=== PATIENT | female | born 1955 | race Caucasian/White ===

== ENCOUNTER 2021-07-20 21:04 | Emergency (ER) | payer MEDICARE, MEDICAID ==
[~2021-07-20] VITALS: Ht 152.4 cm; Wt 78.0 kg
[~2021-07-20 21:04] MED LIST changes: -ALBUMIN HUMAN 12.5G/250ML (5%) IV ONE; -ALBUTEROL 90MCG/PUFF 17GM INHALER INH ONE; -BACITRACIN 15GM TUBE TOP ONE; -BUPIVACAINE HCL/PF 0.5% (5MG/ML) 10ML ONE; -DEXAMETHASONE 4MG/ML 1ML VIAL ONE; -FENTANYL CITRATE/PF 50MCG/ML 2ML VIAL IV PRN; -FENTANYL CITRATE/PF 50MCG/ML 2ML VIAL ONE; -HEPARIN 1000 UNITS/ML 10ML ONE; -HEPARIN SODIUM 1,000 UNIT/1ML VIAL IV NR; -HEPARIN SODIUM 1,000 UNIT/1ML VIAL IV ONE; -LIDOCAINE HCL 1% 20ML VIAL (Pyxis) INJ ONE; -NIFEDIPINE 10MG CAPSULE ONE; -PHENYLEPHRINE HCL 10 MG/ML 1ML (IV VIAL) IV ONE; -POLYMYXIN B SULFATE 500000 UNITS/VIAL ONE; -PROPOFOL 200MG/20ML VIAL IV ONE; -SODIUM CHLORIDE 0.9% 10ML VIAL ONE; -SODIUM CHLORIDE 0.9% 500 ML IV ONE; -THROMBIN (BOVINE) 5000 UNITS/VIAL TOP ONE
[2021-07-21 01:46] VITALS: BP 120/75
== END 2021-07-21 01:35 | disposition home or self-care (01) ==
LOC: ER 21:04
DX: R58 Hemorrhage, not elsewhere classified (principal); E11.9 Type 2 diabetes mellitus without complications; I10 Essential (primary) hypertension; Z98.890 Other specified postprocedural states; Z79.899 Other long term (current) drug therapy
CPT/HCPCS: 99281

== ENCOUNTER → 2021-07-20 | Day surgery (SDC) | payer MEDICARE, MEDICAID ==
[~2021-07-20] VITALS: Ht 162.6 cm; Wt 81.0 kg
[~2021-07-20] MED LIST: ALBUMIN HUMAN 12.5G/250ML (5%) IV ONE; ALBUTEROL 90MCG/PUFF 17GM INHALER INH ONE; AMLO10TA80 MT; ASPI-1497 MT; BACITRACIN 15GM TUBE TOP ONE; BUME1TAB8 MT; BUPIVACAINE HCL/PF 0.5% (5MG/ML) 10ML ONE; CLOP75TA33 MT; DEXAMETHASONE 4MG/ML 1ML VIAL ONE; FENTANYL CITRATE/PF 50MCG/ML 2ML VIAL IV PRN; FENTANYL CITRATE/PF 50MCG/ML 2ML VIAL ONE; FERR325T6 MT; FURO40TA5 MT; GABA-529 MT; HEPARIN 1000 UNITS/ML 10ML ONE; HEPARIN SODIUM 1,000 UNIT/1ML VIAL IV NR; HEPARIN SODIUM 1,000 UNIT/1ML VIAL IV ONE; INSU3INS8 SUBCUT; ISOS30TA12 MT; LEVO75TA7 MT; LIDOCAINE HCL 1% 20ML VIAL (Pyxis) INJ ONE; METO25TA6 MT; NIFEDIPINE 10MG CAPSULE ONE; PANT40TA51 MT; PHENYLEPHRINE HCL 10 MG/ML 1ML (IV VIAL) IV ONE; POLYMYXIN B SULFATE 500000 UNITS/VIAL ONE; PROPOFOL 200MG/20ML VIAL IV ONE; SERT25TA74 MT; SIMV-46 MT; SODIUM CHLORIDE 0.9% 10ML VIAL ONE; SODIUM CHLORIDE 0.9% 500 ML IV ONE; THROMBIN (BOVINE) 5000 UNITS/VIAL TOP ONE; TOPUD MT
[2021-07-20 09:03] LABS: BASOPHILS % 0.8 % (0.0-2.0); EOSINOPHILS % 2.4 % (0.0-5.0); HEMATOCRIT. 35.8 % (36.0-48.0); HEMOGLOBIN. 11.3 g/dL (12.0-16.0); LYMPHOCYTES % 12.6 % (20.0-50.0); MEAN CORPUSCULAR HEMOGLOBIN 32.1 pg (28.0-32.0); MEAN CORPUSCULAR VOLUME 101.9 fL (81.0-99.0); MEAN PLATELET VOLUME 8.7 fl (7.4-10.4); MONOCYTES % 6.3 % (2.0-8.0); NEUTROPHILS % 77.9 % (40.0-76.0); PLATELET 219 x1000/uL (130-400); RED BLOOD CELL COUNT 3.51 mill/uL (4.2-5.4); RED CELL DISTRIBUTION WIDTH 16.8 % (11.6-14.6)
[2021-07-20 09:14] LABS: INR 1.1; PARTIAL THROMBOPLASTIN TIME 23.6 sec (23.4-31.0); PROTHROMBIN TIME 11.7 sec (9.6-11.0)
[2021-07-20] MEDS: HYDROMORPHONE HCL/PF 2MG/ML CPJ IV PRN ×2 (12:19→12:45)
[2021-07-20 12:45] VITALS: BP 123/49
== END | disposition home or self-care (01) ==
LOC: OR 07:33
PROVIDERS: ATTEND Surgery Vascular Surgery
DX: I77.0 Arteriovenous fistula, acquired (principal); I12.0 Hypertensive chronic kidney disease with stage 5 chronic kidney disease or end stage renal disease; N18.6 End stage renal disease; E10.22 Type 1 diabetes mellitus with diabetic chronic kidney disease; I25.10 Atherosclerotic heart disease of native coronary artery without angina pectoris; Z99.2 Dependence on renal dialysis; Z79.82 Long term (current) use of aspirin; Z79.4 Long term (current) use of insulin; Z79.899 Other long term (current) drug therapy; Z98.890 Other specified postprocedural states; Z20.822 Contact with and (suspected) exposure to COVID-19
CPT/HCPCS: 36415; 36830; 80048; 82962; 84132; 85025; 85610; 85730; 87426; 93005; C1768; J1100; J1170; J1644; J2370; J2704; J3010; J3490; J7030; J7040; P9041